=== PATIENT | female | born 1960 | race Hispanic/Latino ===

== ENCOUNTER 2024-11-30 06:10 | Observation (INO) | payer OTHER ==
[2024-11-15 13:19] VITALS: BMI 28.9
[2024-11-30] MEDS ORDERED: PROPOFOL 40 ML ONE (06:31)
[2024-11-30] MEDS ORDERED: Ondansetron PF 4 MG/2 ML Vial ONE (06:32)
[2024-11-30] MEDS ORDERED: SUGAMMADEX SODIUM 200 MG/2 ML VIAL ONE (06:32)
[2024-11-30] MEDS ORDERED: Rocuronium Bromide 10 MG/ML (10ML VIAL) ONE (06:32)
[2024-11-30] MEDS ORDERED: Lidocaine 1% PF 5 ML VIAL ONE (06:35)
[2024-11-30] MEDS ORDERED: Ketorolac Tromethamine 30 MG (1 mL) VIAL ONE ×2 (06:49→13:29)
[2024-11-30] MEDS ORDERED: Acetaminophen 500 MG TAB ONE (06:49)
[2024-11-30] MEDS ORDERED: Bupivacaine/Epinephrine 0.25% 30 ML VIAL ONE (06:57)
[2024-11-30] MEDS ORDERED: CEFAZOLIN 2 GM VIAL ONE (07:20)
[2024-11-30] MEDS ORDERED: SUCCINYLCHOLINE/SOD CL,ISO/PF 200 MG/10 ML SYRINGE FS ONE (08:28)
[2024-11-30] MEDS ORDERED: HYDROmorphone 0.5 MG/0.5 ML SYRINGE ONE (11:12)
[2024-11-30] MEDS ORDERED: Glucagon 1 MG/ML KIT IM PRN (15:07)
[2024-11-30] MEDS ORDERED: hydrALAZINE 20 MG/ML VIAL SLOW IVP PRN (15:07)
[2024-11-30] MEDS ORDERED: Dextrose 50% Abboject 50 ML SYRINGE SLOW IVP PRN (15:07)
[2024-11-30] MEDS: D5 1/2 NS w/20 mEq KCL 1,000 ML IV SCH (15:55)
[2024-11-30] MEDS: Ketorolac Tromethamine 30 MG (1 mL) VIAL IVP SCH (17:40)
[2024-11-30] MEDS: PNEUMOC 20-VAL CONJ-DIP CRM/PF 0.5 ML SYRINGE IM ONE (20:22)
[2024-11-30] MEDS: HYDROcodone/Acetaminophen 7.5/325 mg Tablet PO PRN (20:23)
[2024-11-30] MEDS: Ondansetron PF 4 MG/2 ML Vial IVP PRN (20:24)
[2024-11-30] MEDS: Famotidine 20 MG TAB PO SCH (20:24)
[2024-12-01 03:24] VITALS: BP 137/77; TEMP 98
[2024-12-01 05:05] LABS: Hematocrit 32.5 % (34.9-44.5); Hemoglobin 9.2 g/dL (12.0-15.5); Mean Corpuscular Hemoglobin 20.7 pg (27.0-33.0); Mean Corpuscular Volume 73.0 fL (81.6-98.3); Platelet Count 274 10x3/uL (150-450); Red Blood Cell (RBC) Count 4.45 10x6/uL (3.90-5.03); White Blood Cell (WBC) Count 11.74 10x3/uL (3.5-10.5)
[2024-12-01 05:13] LABS: Anion Gap 10 mmol/L (10-20); BUN (Urea Nitrogen) 11 mg/dL (9.8-20.1); Calc. Creatinine Clearance 106 mL/min (70-130); Calcium 8.6 mg/dL (7.8-10.44); Carbon Dioxide 23 mmol/L (23-31); Chloride 110 mmol/L (98-107); Glucose 111 mg/dL (80-115); Potassium 4.3 mmol/L (3.5-5.1); Sodium 139 mmol/L (136-145)
[2024-12-01 05:37] LABS: #Basophils Less than 0.03 10x3/uL (0.0-0.2); #Eosinophils Less than 0.03 10x3/uL (0.0-0.5); #Monocytes 1.25 10x3/uL (0.0-1.1); #Neutrophils 9.44 10x3/uL (1.5-8.4); %Basophils 0.2 % (0.0-2.0); %Eosinophils 0.0 % (0.0-6.0); %Lymphocytes 8.5 % (18.0-47.0); %Monocytes 10.6 % (0.0-10.0); %Neutrophils 80.4 % (40.0-75.0)
[2024-12-01] MEDS: Pantoprazole 40 MG DR.TAB PO SCH (08:36)
== END 2024-12-01 15:38 | disposition home or self-care (01) ==
LOC: CSHSDC 06:10 → CSHTELE 15:06
PROVIDERS: ADMIT Specialist; ATTEND Specialist
PROC: 0BQT4ZZ Repair Diaphragm, Percutaneous Endoscopic Approach (ICD-10-PCS; principal; 2024-11-30)
PROC: 0DQ64ZZ Repair Stomach, Percutaneous Endoscopic Approach (ICD-10-PCS; 2024-11-30)
DX: K44.9 Diaphragmatic hernia without obstruction or gangrene (principal); K25.9 Gastric ulcer, unspecified as acute or chronic, without hemorrhage or perforation; K21.9 Gastro-esophageal reflux disease without esophagitis; Z91.040 Latex allergy status; Z88.0 Allergy status to penicillin
CPT/HCPCS: 43280; 43659; 80048; 85025; 86850; 86900; 86901; 94760; J1100; J1171; J1885 ×2; J2371; J2405; J2704; J3010 ×2; J3480 ×2; S2900; 36415